=== PATIENT | female | born 1975 ===

== ENCOUNTER 2017-08-31 10:19 | Emergency (ER) | payer MEDICAID ==
[2017-08-31 10:46] VITALS: RESP 18; TEMP 98.4
[2017-08-31] MEDS ORDERED: Lidocaine 5% Patch TD STA (11:13)
[2017-08-31] MEDS ORDERED: Lidocaine 5% Patch TD ONE (11:20)
--- NOTE | 2017-08-31 11:45 | C.PDOC ---
History Of Present Illness 41 yo female c/o lower back pain since yesterday. Pain is on both sides, aggravated by movement. Pt was taking motrin and tramadol that she usually takes when she gets back pain from her scoliosis. H/o MRI last year. Denies dysuria , urinary frequency, fever, n/v, abdominal pain, urinary/bowel incontinence, or change in sensation. Time Seen by Provider: 08/31/17 11:06 Chief Complaint (Nursing): Back Pain History Per: Patient History/Exam Limitations: no limitations Onset/Duration Of Symptoms: Days (yesterday) Current Symptoms Are (Timing): Still Present Associated Symptoms: denies: Incontinence, New Weakness, New Numbness Exacerbating Factor(s): Movement Past Medical History Vital Signs: Last Vital Signs Temp 98.4 F 08/31/17 10:39 Pulse 87 08/31/17 12:52 Resp 18 08/31/17 12:52 BP 115/76 08/31/17 12:52 Pulse Ox 97 08/31/17 12:52 - Medical History PMH: Asthma Family History: States: Unknown Family Hx - Social History Hx Alcohol Use: No Hx Substance Use: No - Immunization History Hx Tetanus Toxoid Vaccination: No Hx Influenza Vaccination: No Hx Pneumococcal Vaccination: No Review Of Systems Except As Marked, All Systems Reviewed And Found Negative. Musculoskeletal: Positive for: Back Pain Physical Exam - Physical Exam Appears: Well, Non-toxic, No Acute Distress Skin: Normal Color, Warm, Dry Head: Atraumatic, Normacephalic Eye(s): bilateral: Normal Inspection, EOMI Nose: Normal Oral Mucosa: Moist Neck: Normal, Normal ROM, Supple Chest: Symmetrical Cardiovascular: Rhythm Regular Respiratory: Normal Breath Sounds Gastrointestinal/Abdominal: Normal Exam, Soft, No Tenderness Back: No CVA Tenderness, No Vertebral Tenderness, Muscle Spasm, Paraspinal Tenderness ((+) b/l lower paralumbar tenderness), Other Extremity: Normal ROM Neurological/Psych: Oriented x3, Normal Motor, Normal Sensation Gait: Steady ED Course And Treatment O2 Sat by Pulse Oximetry: 98 Progress Note: Toradol, Flexeril, and Lidoderm patch ordered. On reassessment, patient is resting comfortably, with improvement of back pain. Patient remains afebrile, with no bony tenderness, extremity numbness or weakness, or abdominal pain. Patient is ambulatory in the emergency department with no signs of discomfort. DIscussed UA results - no hematuria or infection. Discussed XR results and Patient was advised to follow up with physician/clinic in 1-2 days. Disposition - Disposition Disposition: HOME/ ROUTINE Disposition Time: 11:51 Condition: STABLE Additional Instructions: Follow up with your primary medical doctor or clinic in 2-5 days for further evaluation. Take medications as prescribed. Return to the emergency department at any time if symptoms persist or worsen. Prescriptions: Cyclobenzaprine [Cyclobenzaprine HCl] 10 mg PO TID #20 tab Naproxen [Naprosyn] 1 tab PO BID PRN #20 tab PRN Reason: Pain Instructions: Low Back Pain (DC) Forms: [facility] ([place]), Work Excuse - Clinical Impression Clinical Impression: Low back pain
[2017-08-31 11:52] LABS: HCG,QUALITATIVE URINE NEGATIVE (NEGATIVE)
[2017-08-31 12:14] LABS: SQUAMOUS EPITHIAL 18 /hpf (0-5); URINE BACTERIA RARE (<OCC); URINE BILIRUBIN NEGATIVE (NEGATIVE); URINE BLOOD 1+ (NEGATIVE); URINE CLARITY Hazy (Clear); URINE COLOR Yellow (YELLOW); URINE GLUCOSE (UA) NORMAL (Normal); URINE LEUKOCYTE ESTERASE NEG Leu/uL (Negative); URINE PROTEIN NEGATIVE (NEGATIVE); URINE UROBILINOGEN NORMAL mg/dL (0.2-1.0)
[2017-08-31 12:54] VITALS: BP 115/76; PULSE 87
--- NOTE | 2017-08-31 12:56 | RAD ---
PROCEDURE: Radiographs of the Lumbar Spine. HISTORY: Pain COMPARISON: No prior. FINDINGS: BONES: No acute compression fractures no retropulsed fragments. Vertebral bodies exhibit normal stature. Mild levoscoliosis Vertebral bodies otherwise exhibit normal alignment. DISC SPACES: Disc space heights relatively maintained. OTHER FINDINGS: Metallic clips overlying the pelvis bilaterally likely represent sequela of tubal ligation IMPRESSION: No acute fractures. Mild levoscoliosis.
[2017-08-31 13:02] VITALS: O2SAT 98
== END 2017-08-31 12:53 | disposition home or self-care (01) ==
LOC: C.ER 10:19
DX: M54.5 Low back pain (principal)
CPT/HCPCS: 72100; 81001; 84703; 96372; 99283; J1885